=== PATIENT | female | born 1985 | race Caucasian/White ===

== ENCOUNTER 2024-11-09 10:25 | Emergency (ER) | payer OTHER | END 2024-11-09 12:15 | disposition home or self-care (01) | LOC: CSHERS 10:25 | DX: S29.012A Strain of muscle and tendon of back wall of thorax, initial encounter (principal); S40.012A Contusion of left shoulder, initial encounter; S20.212A Contusion of left front wall of thorax, initial encounter; V43.52XA Car driver injured in collision with other type car in traffic accident, initial encounter | CPT/HCPCS: 71045; 93005 ==